=== PATIENT | male | born 1970 | race Caucasian/White ===

== ENCOUNTER → 2018-08-09 15:31 | Emergency (ER) | payer OTHER ==
--- NOTE | 2018-08-09 17:36 | ED ---
Abdominal Pain/Male - HPI Summary HPI Summary: 48-year-old male presents with right mid and upper quadrant pain. States he awoke yesterday with the pain is progressively worsened since that time. Describes the pain as a constant dull ache that will occasionally become a sharp pinching pain especially if he tries to sit up straight. Denies fever, chills, chest pain, shortness of breath, nausea, vomiting, diarrhea, melena, blood in stool, dysuria, frequency, urgency, hematuria, penile drainage, testicular pain or swelling. Last bowel movement this morning with normal color and consistency. Last ate around 1:00 this afternoon. - History of Current Complaint Chief Complaint: EDAbdPain Stated Complaint: ABD PAIN Time Seen by Provider: 08/09/18 17:30 Hx Obtained From: Patient Pain Intensity: 7 - Allergies/Home Medications Allergies/Adverse Reactions: Allergies Allergy/AdvReac Type Severity Reaction Status Date / Time No Known Allergies Allergy Verified 06/07/15 14:17 PMH/Surg Hx/FS Hx/Imm Hx Previously Healthy: Yes - Denies significant PMH Psychiatric History: Reports: Hx Depression - Surgical History Surgery Procedure, Year, and Place: Ankle surgery 20 years ago Hx Anesthesia Reactions: No Infectious Disease History: No Infectious Disease History: Denies: Traveled Outside the [place] in Last 30 Days - Family History Known Family History: Positive: Non-Contributory - Social History Occupation: Employed Full-time Lives: With Family Alcohol Use: None Substance Use Type: Reports: None Smoking Status (MU): Never Smoked Tobacco Review of Systems Negative: Fever, Chills ENT: Negative Negative: Palpitations, Chest Pain Negative: Shortness Of Breath, Cough Positive: Abdominal Pain. Negative: Vomiting, Diarrhea, Nausea Negative: dysuria, discharge, frequency, flank pain, hematuria, pain, urgency Musculoskeletal: Negative Skin: Negative Neurological: Negative All Other Systems Reviewed And Are Negative: Yes Physical Exam - Summary Physical Exam Summary: GENERAL APPEARANCE: Well developed, well nourished, cooperative, and appears to be in no acute distress. CARDIAC: Normal S1 and S2. No S3, S4 or murmurs. Rhythm is regular. There is no peripheral edema, cyanosis or pallor. Extremities are warm and well perfused. Capillary refill is less than 2 seconds. Peripheral pulses intact. LUNGS: Clear to auscultation without rales, rhonchi, wheezing or diminished breath sounds. ABDOMEN: Positive bowel sounds. Soft, nondistended, nontender. No guarding or rebound. No masses or hepatosplenomegally. No CVA tenderness. MUSKULOSKELETAL: ROM intact to all extremities. No joint erythema or tenderness. Normal muscular development. Normal gait. BACK: Examination of the spine reveals posture, no spinal deformity or tenderness, decreased range of motion or muscular spasm. NEUROLOGICAL: Awake, alert, oriented x 4. SKIN: Skin normal color, texture and turgor with no lesions or eruptions. Triage Information Reviewed: Yes Vital Signs On Initial Exam: Initial Vitals Temp Pulse Resp BP Pulse Ox 98.3 F 87 18 116/83 96 08/09/18 15:40 08/09/18 15:40 08/09/18 15:40 08/09/18 15:40 08/09/18 15:40 Vital Signs Reviewed: Yes Diagnostics - Vital Signs Vital Signs Temp Pulse Resp BP Pulse Ox 08/09/18 15:40 98.3 F 87 18 116/83 96 - Laboratory Result Diagrams: 08/09/18 17:47 08/09/18 17:47 Lab Statement: Any lab studies that have been ordered have been reviewed, and results considered in the medical decision making process. - Radiology No standard instances Radiology Interpretation Completed By: Radiologist Summary of Radiographic Findings: Patient Name: HERB MAYER Medical Record#: [id number]. Ordering Physician: Kenan Whitfield MD Acct.#: [id number]. : 01/1971 Age: 48 Sex: M Location: EMERGENCY DEPARTMENT. Exam Date: 08/09/18 154 ADM Status: REG ER. Order Information: CHEST PA LAT 2 VWS. Accession Number: [id number]. CPT: 87883. HISTORY: RUQ abd pain, R low chest discomfort. COMPARISONS: None. VIEWS: 4: Frontal dual-energy and lateral views of the chest. FINDINGS: CARDIOMEDIASTINAL SILHOUETTE: The cardiomediastinal silhouette is normal. LUIS A: The luis a are normal. PLEURA: The costophrenic angles are sharp. No pleural abnormalities are noted. LUNG PARENCHYMA: The lungs are clear. ABDOMEN: The upper abdomen is clear. There is no subphrenic gas. BONES AND SOFT TISSUES: No bone or soft tissue abnormalities are noted. OTHER: None. IMPRESSION: NO ACTIVE CARDIOPULMONARY DISEASE. - Ultrasound No standard instances Ultrasound Interpretation Completed By: Radiologist Summary of Ultrasound Findings: Patient Name: HERB MAYER Medical Record#: [id number]. Ordering Physician: Kenan Whitfield MD Acct.#: [id number]. : 01/1971 Age: 48 Sex: M Location: EMERGENCY DEPARTMENT. Exam Date: 08/09/18 1545 ADM Status: REG ER. Order Information: US GALL BLADDER LIMITED. Accession Number: [id number]. CPT: 78797. HISTORY: Right upper quadrant pain. COMPARISONS: None. TECHNIQUE: Multiple transverse and longitudinal ultrasound images were obtained of the. right upper quadrant. FINDINGS: LIVER : The liver is normal in dimensions and echogenicity. Normal hepatic and portal. venous blood flow is duplicated with color flow imaging. There is no gross intrahepatic. biliary duct dilatation. GALLBLADDER AND EXTRAHEPATIC BILIARY DUCT: The gallbladder is mostly contracted which. limits evaluation. The gallbladder is normal in appearance without intraluminal stones or. other soft tissue masses. There is no pericholecystic fluid or gallbladder wall. thickening. The common bile duct measures a maximum diameter of 3 mm. PANCREAS : The portions of the pancreas not obscured by bowel gas are normal in appearance. RIGHT KIDNEY: At the lower pole cortex of the right kidney is an anechoic and avascular. 1.3 cm structure most consistent with a benign cyst. Otherwise the right kidney is normal. in size, morphology and echogenicity. AORTA AND IVC: The visualized portions are normal in appearance and not pathologically. dilated. IMPRESSION: 1. NORMAL ULTRASOUND OF THE RIGHT UPPER QUADRANT. 2. EVALUATION OF THE GALLBLADDER IS LIMITED DUE TO PARTIAL CONTRACTION Abdominal Pain Fem Course/Dx - Course Course Of Treatment: 48-year-old male presents with right mid and upper quadrant pain. States he awoke yesterday with the pain is progressively worsened since that time. Describes the pain as a constant dull ache that will occasionally become a sharp pinching pain especially if he tries to sit up straight. Denies fever, chills, chest pain, shortness of breath, nausea, vomiting, diarrhea, melena, blood in stool, dysuria, frequency, urgency, hematuria, penile drainage, testicular pain or swelling. Last bowel movement this morning with normal color and consistency. Last ate around 1:00 this afternoon. Afebrile. Vital signs stable. Exam was unremarkable except for some mild right upper and lower quadrant tenderness without guarding or rebound. Right upper quadrant ultrasound was normal although noted to be limited to gallbladder compression. Normal chest x-ray. CBC, CMP, lipase, CRP , and urinalysis all within normal limits. Results were discussed with the patient. Based on these findings I have a low suspicion for an acute abdomen and therefore recommending some watchful waiting with close follow-up with primary care provider within 3-5 days for recheck of symptoms. Anticipatory guidance and warning symptoms were reviewed with the patient. Verbalizes understanding and is in agreement with this plan of care. - Diagnoses Differential Diagnosis/HQI/PQRI: Gall Bladder Disease, Pancreatitis, Peptic Ulcer Disease, Pneumonia Provider Diagnoses: Acute abdominal pain Discharge - Sign-Out/Discharge Documenting (check all that apply): Patient Departure Patient Received Moderate/Deep Sedation with Procedure: No - Discharge Plan Condition: Stable Disposition: HOME Patient Education Materials: Acute Abdominal Pain (ED) Referrals: Nely Treadwell MD [Primary Care Provider] - 3 Days (Follow up in 3-5 days for recheck of symptoms.) Additional Instructions: Many times we are not able to determine the exact cause of abdominal pain. The abdominal ultrasound, chest x-ray, lab work, and urine test performed in the emergency room were all normal. Based on these results and your exam I have a low suspicion for a serious cause such as gall bladder disease, kidney stone, or appendicitis. You may take an over the counter pain medication such as acetaminophen (Tylenol ) or ibuprofen (Advil, Motrin) according to directions as needed for pain. Follow up with your primary care provider within 3-5 days for recheck of symptoms. Return immediately to the emergency room if you have worsening of your abdominal pain, develop persistent or projectile vomiting, there is blood in your vomit or stool, you become weak or dizzy, or have any worsening of symptoms. - Billing Disposition and Condition Condition: STABLE Disposition: Home
[2018-08-09 18:02] LABS: ABS Basophils 0 10^3/ul (0-0.2); ABS Eosinophils 0.2 10^3/ul (0-0.6); ABS Lymphocytes 1.9 10^3/ul (1.0-4.8); ABS Monocytes 0.7 10^3/ul (0-0.8); ABS Neutrophils 3.7 10^3/ul (1.5-7.7); ABS Nucleated RBC 0 10^3/ul; Eosinophil % 2.4 %; Hematocrit 45 % (42-52); Hemoglobin 15.2 g/dl (14.0-18.0); Lymphocyte % 28.8 %; Mean Corpuscular HGB Conc 34 g/dl (31-36); Mean Corpuscular Hemoglobin 30 pg (27-31); Mean Corpuscular Volume 88 fL (80-94); Mean Platelet Volume 7.8 fL (7.4-10.4); Nucleated Red Blood Cells % 0; Platelet Count 258 10^3/ul (150-450); Red Blood Count 5.11 10^6/ul (4.00-5.40); Red Cell Distribution Width 13 % (10.5-15); White Blood Count 6.6 10^3/ul (3.5-10.8)
[2018-08-09 18:07] LABS: INR 0.96 (0.77-1.02)
[2018-08-09 18:15] LABS: Albumin 4.3 g/dL (3.2-5.2); Albumin/Globulin Ratio 1.7 (1-3); BUN/Creatinine Ratio 21.7 (8-20); C Reactive Protein 3.98 mg/L (<8.01); Calcium 8.8 mg/dL (8.6-10.3); EGFR African American 107.2 (>60); EGFR Non-African American 88.6 (>60); Globulin 2.6 g/dL (2-4); Total Bilirubin 0.3 mg/dL (0.2-1.0); Total Protein 6.9 g/dL (6.4-8.9)
[2018-08-09 18:43] LABS: Urine Appearance Cloudy; Urine Bilirubin Negative (Negative); Urine Blood Negative (Negative); Urine Color Yellow; Urine Glucose Negative (Negative); Urine Ketones Negative (Negative); Urine Nitrite Negative (Negative); Urine Protein Negative (Negative); Urine Specific Gravity 1.027 (1.010-1.030); Urine Urobilinogen Negative (Negative)
[2018-08-09 19:01] LABS: Potassium 4.1 mmol/L (3.5-5.0)
[2018-08-09 19:43] VITALS: BP 0/0
== END | disposition home or self-care (01) ==
LOC: ED 15:31
DX: R10.11 Right upper quadrant pain (principal)
CPT/HCPCS: 36415; 71046; 76705; 80053; 81003; 83605; 83690; 85025; 85610; 86140; 99282

== ENCOUNTER 2019-05-19 07:38 | Emergency (ER) | payer OTHER ==
[2019-05-19 08:15] LABS: ABS Eosinophils 0.1 10^3/ul (0-0.6); ABS Lymphocytes 1.3 10^3/ul (1.0-4.8); ABS Monocytes 0.5 10^3/ul (0-0.8); ABS Neutrophils 4.1 10^3/ul (1.5-7.7); Eosinophil % 2.1 %; Hematocrit 43 % (42-52); Lymphocyte % 21.4 %; Mean Corpuscular HGB Conc 35 g/dL (31-36); Mean Corpuscular Hemoglobin 30 pg (27-31); Mean Corpuscular Volume 86 fL (80-94); Mean Platelet Volume 7.6 fL (7.4-10.4); Nucleated Red Blood Cells % 0.1; Platelet Count 214 10^3/uL (150-450); Red Blood Count 4.99 10^6 /uL (4.18-5.48); Red Cell Distribution Width 13 % (10-15)
[2019-05-19 08:24] LABS: Calcium 8.6 mg/dL (8.6-10.3); Potassium 3.7 mmol/L (3.5-5.0); Total Bilirubin 0.5 mg/dL (0.2-1.0)
[2019-05-19 08:30] LABS: Albumin/Globulin Ratio 1.5 (1-3); BUN/Creatinine Ratio 18.2 (8-20); EGFR African American 131.6 (>60); EGFR Non-African American 108.8 (>60); Globulin 2.6 g/dL (2-4); Total Protein 6.6 g/dL (6.4-8.9)
[2019-05-19 08:58] LABS: Urine Appearance Clear; Urine Bilirubin Negative (Negative); Urine Blood Negative (Negative); Urine Color Straw; Urine Glucose Negative (Negative); Urine Ketones Negative (Negative); Urine Nitrite Negative (Negative); Urine Protein Negative (Negative); Urine Specific Gravity 1.004 (1.010-1.030); Urine Urobilinogen Negative (Negative)
--- OUTSIDE RECORDS SUMMARY | 2019-05-19 09:08 | XMS REPORT | Summary of Care ---
:1970 Author Organization [facility] Address [address] [place] [address] Care Team Providers Name Role Phone Nely Treadwell Primary Care Provider Reason for Visit Sleep Study (Routine) Status Reason Specialty Diagnoses / Referred By Referred To Procedures Contact Contact Closed SLEEP LAB / Sleep Diagnoses Obstructive sleep apnea (adult) (pediatric) Non-restorative sleep Snoring Nely Treadwell MD Sleep Lab Disorder [address] [place], [place] [id number] Phone: Encounter Details Date Type Department Care Team Description 04/22/2019 Hospital Encounter [facility] Sleep Lab Outpatient [address] [place] [address] Allergies No Known Allergiesdocumented as of this encounter (statuses as of 04/24/2019) Medications Medication Sig Dispensed Refills Start Date End Date Status Multiple Take 1 Tab by 30 Tab 0 03/09/2018 Active Vitamins-Minerals (MENS mouth WITH LUNCH 50+ MULTI VITAMIN/MIN) DAILY. Oral TabIndications: Vitamin D deficiency, Vitamin B 12 deficiency documented as of this encounter (statuses as of 04/24/2019) Active Problems Problem Noted Date Nasal congestion 03/23/2019 Nose septum deviation 03/23/2019 KALYAN (obstructive sleep apnea) 03/23/2019 Non-restorative sleep 03/23/2019 Snoring 03/23/2019 Hyperglycemia 03/23/2019 Depression screen 03/23/2019 Vitamin B12 deficiency 03/23/2019 Cyst of right kidney seen on US 07/201803/21/2019 Vitamin D deficiency 03/07/2017 Hyperlipidemia with target LDL less than 100 03/07/2017 Simple hepatic cyst 03/07/2017 Ex-moderate cigarette smoker (10-19 per day) 08/25/2016 Physical exam, annual 08/25/2016 documented as of this encounter (statuses as of 04/24/2019) Resolved Problems Problem Noted Date Resolved Date History of vitamin B deficiency 04/20/2018 03/23/2019 Hypovitaminosis D 09/20/2012 02/20/2015 Tobacco use disorder 11/25/2010 12/06/2011 Nicotine dependence 11/25/2010 09/20/2012 BMI 27.0-27.9,adult 09/20/2012 Overview: BMI 27.04 Vertigo 03/23/2019 documented as of this encounter (statuses as of 04/24/2019) Immunizations Name Administration Dates Next Due Influenza (IM) Preservative Free 06/20/2015 documented as of this encounter Social History Tobacco Use Types Packs/Day Years Used Date Former Smoker Cigarettes 1 16 Quit: 10/25/2011 Smokeless Tobacco: Never Used Comments: Contemplation Stage Alcohol Use Drinks/Week oz/Week Comments Yes 10 Standard drinks or equivalent 10.0 Sex Assigned at Date Recorded Not on file Job Start Date Occupation Industry Not on file Not on file Not on file Travel History Travel Start Travel End No recent travel history available. documented as of this encounter Last Filed Vital Signs Vital Sign Reading Time Taken Comments Blood Pressure - - Pulse - - Temperature - - Respiratory Rate - - Oxygen Saturation - - Inhaled Oxygen Concentration - - Weight 83.9 kg (185 lb) 04/22/2019 11:50 PM EDT Height 175.3 cm (5' 9") 04/22/2019 11:50 PM EDT Body Mass Index 27.32 04/22/2019 11:50 PM EDT documented in this encounter Progress Notes Sp Melo, WELDING TECHNICIAN - 04/22/2019 11:37 PM EDT [facility] [address] [place] [address] Patient: Pepito Maxdonnell Date of : 1970 Study Type: [facility] Date of test: 04/22/2019 Unhairing Inspector: Sp Melo CRTT Room #: 1 [facility] #: [id number] Pre-Testing Questionnaire 1) What time did you fall asleep last night? 2200 2) What time did you wake up this morning? 0600 3) Was this a typical night's sleep for you? yes If no, please explain: 4) Approximately how many hours did you sleep... Last night 7-8 Two nights ago 8 Three nights ago 8 5) How many naps did you have today? None How long? 6) How tired/sleepy are you now? (Wide awake = 1, Can't keep my eyes open = 10 ) 7 7) Has anything out of the ordinary happened to you recently? Please explain NO 8) Do you take medications to help you sleep? no Please list: 9) Have you taken any prescription or over the counter medications today? no Please list: NA 10) Do any occurences during sleep concern you? NO 11) Do you have any medical problems or sleep habits that the satellite technician should be made aware? NO 12) Did you consume any alcohol today? no 13) Did you consume any caffeine today? yes 14) Current vitals: Ht 5' 9" (1.753 m) | Wt 185 lb (83.9 kg) | BMI 27.32 kg/ m Unhairing Inspector Summary Current medications: Current Outpatient Medications Medication Sig Multiple Vitamins-Minerals (MENS 50+ MULTI VITAMIN/MIN) Oral Tab Take 1 Tab by mouth WITH LUNCH DAILY. No current facility-administered medications for this encounter. Unhairing Inspector Pretest Summary The patient has a history of mild daytime sleepiness . The patient is aware of moderate snoring. His Franklin Score is 10. The patient becomes drowsy when in class, when sitting quietly, watching TV and at the movies. He does not nap during the day. He is unaware of any apnea/abnormal breathing. The patient typically awakens unrefreshed. He typically consumes 3 caffeinated beverages a day. The patient has not been using any therapy at home. Procedure explained to pt and also about the use of cpap. Time Epoch Stage Position SaO2 Modality 2232 107 Wake Supine 96 N/A Arousals Respiratory Events Snoring HR Comments no None No snoring 68 Additional comments: Pt to bed and lights out. RR 18 bpm. Time Epoch Stage Position SaO2 Modality 2305 174 2 Supine 94 N/A Arousals Respiratory Events Snoring HR Comments no None No snoring 63 Leg movements Additional comments: Time Epoch Stage Position SaO2 Modality 2335 233 2 Right 95 N/A Arousals Respiratory Events Snoring HR Comments no RERAs No snoring 65 Additional comments: Time Epoch Stage Position SaO2 Modality 0005 293 REM Right 95 N/A Arousals Respiratory Events Snoring HR Comments no None No snoring 65 Additional comments: Time Epoch Stage Position SaO2 Modality 0035 354 2 Supine 96 N/A Arousals Respiratory Events Snoring HR Comments no None No snoring 64 Additional comments: Time Epoch Stage Position SaO2 Modality 0107 418 3 Right 96 N/A Arousals Respiratory Events Snoring HR Comments no None No snoring 65 Additional comments: 0126 Epoch 455. Tech in to fix leg electrodes. Time Epoch Stage Position SaO2 Modality 0142 487 REM Supine 94 N/A Arousals Respiratory Events Snoring HR Comments no None No snoring 60 Additional comments: 0158 Tech in to fix ptaf and chest belt. Time Epoch Stage Position SaO2 Modality 0215 553 2 Left 95 N/A Arousals Respiratory Events Snoring HR Comments no None No snoring 55 Additional comments: Time Epoch Stage Position SaO2 Modality 0250 623 2 Supine 95 N/A Arousals Respiratory Events Snoring HR Comments no None No snoring 55 Additional comments: Time Epoch Stage Position SaO2 Modality 0321 686 2 Right 96 N/A Arousals Respiratory Events Snoring HR Comments no None No snoring 54 Additional comments: Time Epoch Stage Position SaO2 Modality 0357 757 2 Right 96 N/A Arousals Respiratory Events Snoring HR Comments no None No snoring 52 Additional comments: Time Epoch Stage Position SaO2 Modality 0430 824 REM Supine and Left 96 N/A Arousals Respiratory Events Snoring HR Comments no None No snoring 48 Additional comments: Time Epoch Stage Position SaO2 Modality 0514 911 Wake Supine 96 N/A Arousals Respiratory Events Snoring HR Comments no None No snoring 77 Additional comments: Pt up at this time. Supplemental O2 Setting: NA Tolerance: Well Lights on: 0514 Lights off: 2 Bathroom visits: 1 Bed elevation: Flat Number of pillows: 1 Post-Testing Questionnaire 1) How long did it take you to fall asleep last night? hrs 20 min 2) How many times did you wake up last night? 5 3) How tired/sleepy are you now? (can't keep my eyes open = 1, wide awake = 5) 4 4) Was the bed comfortable? (not at all = 1, very = 5) 4 5) Was the temperature comfortable? (not at all = 1, very = 5) 4 6) Was the noise level comfortable? (noisy = 1, quiet = 5) 5 7) Was our staff attentive to your needs? (not at all = 1, very = 5) 5 8) How long do you think you slept last night? 6 hrs min 9) Did you have difficulty falling asleep last night? no If so, why?: 10) Did you dream last night? no 11) Did you have any trouble breathing last night? no 12) Do you remember moving in your sleep last night? yes 13) Do any of the following describe how you feel this morning? Feel rested 14) How did the quality of sleep last night compare to your usual sleep at home ? Worse 15) If you could use one word to describe your experience, what would it be? NA Please share with us how we could improve your visit. NA Comments: NA Author: Sp Melo CRTT Date and time completed: 04/23/2019 05:51 documented in this encounter Plan of Treatment Date Type Specialty Care Team Description 06/12/2019 Hospital Encounter [facility] Augusto Hdz Short Procedure MD Ricki [address] [place] [address] 06/12/2019 Surgery [facility] Augusto Hdz SEPTORHINOPLASTYJr. MD REDUCTION OF [address] BILATERAL INFERIOR [place] [address] 06/20/2019 Office Visit Otorhinolaryngology Augusto Hdz Jr., MD [address] [place] [address] 03/24/2020 Office Visit Internal Medicine Nely Treadwell MD [address] [facility] [address] [phone] Name Type Priority Associated Diagnoses Order Schedule REFER TO SLEEP STUDY Referral Routine Snoring Ordered: 03/22/2019 LAB Non-restorative sleep KALYAN (obstructive sleep apnea) Health Maintenance Due Date Last Done Comments INFLUENZA VACCINE (#1) 2019 06/20/2015 DEPRESSION SCREENING 03/22/2020 03/22/2019, 04/20/2018 DIABETES SCREENING 03/29/2020 03/29/2019, 03/29/2019, 04/20/2018, Additional history exists LIPID DISORDER SCREENING 03/29/2024 03/29/2019, 03/09/2018, 08/25/2016, Additional history exists HPV IMMUNIZATION SERIES Aged Out No longer eligible based on patient's age to complete this topic MENINGOCOCCAL VACCINE IMM Aged Out No longer eligible based on patient's age to complete this topic PNEUMOCOCCAL 0-64 YRS Aged Out No longer eligible based on patient's age to complete this topic documented as of this encounter Goals Goal Patient Goal Associated Recent Patient-Stated? Author Type Problems Progress Depression Depression 4 (04/20/2018 No Eben, screen (PHQ-9) 2:58 PM EDT) Nely total score < 5 Note: This is an individualized treatment (depression) goal for Pepito Norwood: Displayed above is your goal for a depression screening (PHQ-9) score that would indicate good control of your depression. Keep a regular sleep schedule Lifestyle No Nely Treadwell MD Note: This is an individualized lifestyle goal for Pepito Norwood: Please maintain a regular sleep schedule. This may help with some symptoms of depression. Take all prescribed medications as directed Self-management No Nely Treadwell MD Note: This is an individualized self-management goal for Pepito Norwood: Please take all prescribed medications as directed. 1. Do not skip doses. If you cannot afford your medications, talk with your doctor. 2. Use a pill reminder system such as a pill box if needed. Your pharmacist can help you with this. 3. Contact your Pharmacy 5 days before your medication runs out. If you cannot take your medications for any reasons, talk with your doctor. 4. Please bring all of your medication bottles and inhalers (or a list of all your medications/inhalers) with you to every visit. Potential barriers to meeting all of your care plan goals will continue to be addressed on an ongoing basis. documented as of this encounter Results Not on filedocumented in this encounter Insurance Payer Benefit Plan / Subscriber ID Effective Dates Phone Address Type Group [employer] COMMERCIAL AETNA xxxxxxxxxx 2018-Present A[employer]na Guarantor Name Account Type Relation to Date of Phone Billing Address Patient AndristPepito Isabelle Personal/Famil 1970 [address] (Home) [place] [phone] [place], [place] (Work) [id number] documented as of this encounter
--- OUTSIDE RECORDS SUMMARY | 2019-05-19 09:08 | XMS REPORT | Summary of Care ---
:1970 Author Organization [facility] Address [address] [address] Care Team Providers Name Role Phone Nely Treadwell Primary Care Provider Reason for Visit Reason Comments Nose Problem Patient presents with nasal obstruction and snoring. He has tried nasal silicone stents to help with breathing. Scheduled for sleep study Monday04/22/19. Encounter Details Date Type Department Care Team Description 04/18/2019 Office Visit Augusto Jimenez Jr., Obstruction of nose ( Primary Dx); Otorhinolaryngology MD Deviated nasal septum; [address] Nasal deformity, acquired [address] [place] [address] [address] [phone] Allergies No Known Allergiesdocumented as of this encounter (statuses as of 04/18/2019) Medications Medication Sig Dispensed Refills Start Date End Date Status Multiple Take 1 Tab by 30 Tab 0 03/09/2018 Active Vitamins-Minerals (MENS mouth WITH LUNCH 50+ MULTI VITAMIN/MIN) DAILY. Oral TabIndications: Vitamin D deficiency, Vitamin B 12 deficiency documented as of this encounter (statuses as of 04/18/2019) Active Problems Problem Noted Date Nasal congestion 03/23/2019 Nose septum deviation 03/23/2019 KALYAN (obstructive sleep apnea) 03/23/2019 Non-restorative sleep 03/23/2019 Snoring 03/23/2019 Hyperglycemia 03/23/2019 Depression screen 03/23/2019 Vitamin B12 deficiency 03/23/2019 Cyst of right kidney seen on 07/201803/21/2019 Vitamin D deficiency 03/07/2017 Hyperlipidemia with target LDL less than 100 03/07/2017 Simple hepatic cyst 03/07/2017 Ex-moderate cigarette smoker (10-19 per day) 08/25/2016 Physical exam, annual 08/25/2016 documented as of this encounter (statuses as of 04/18/2019) Resolved Problems Problem Noted Date Resolved Date History of vitamin B deficiency 04/20/2018 03/23/2019 Hypovitaminosis D 09/20/2012 02/20/2015 Tobacco use disorder 11/25/2010 12/06/2011 Nicotine dependence 11/25/2010 09/20/2012 BMI 27.0-27.9,adult 09/20/2012 Overview: BMI 27.04 Vertigo 03/23/2019 documented as of this encounter (statuses as of 04/18/2019) Immunizations Name Administration Dates Next Due Influenza [...] - Inhaled Oxygen Concentration - - Weight 87.5 kg (193 lb) 04/18/2019 1:04 PM EDT Height 175.3 cm (5' 9") 04/18/2019 1:04 PM EDT Body Mass Index 28.5 04/18/2019 1:04 PM EDT documented in this encounter Patient Instructions Patient InstructionsMelissa Bates LPN - 04/18/2019 1:00 PM EDTPatient Education Septoplasty Why is this procedure done? Septoplasty is done to correct problems with the septum inside your nose. Your septum is the wall that divides your nostrils. It is made of bone and hard tissue called cartilage. The surgery is done to: Fix a septum that is out of place and is blocking your nose Straighten your septum Repair a crooked, bent, or deformed septum that blocks your ability to breathe Repair a hole in your septum Control sinus infections Control irregular nose bleeding What will the results be? After you recover, you will be able to breathe through your nose more easily. Your septum will be straight and in the right place. What happens before the procedure? Your doctor will take your history and do an exam. Talk to the doctor about : ? All the drugs you are taking. Be sure to include all prescription and over-the -counter (OTC) drugs, and herbs you are taking. Tell the doctor about any drug allergy. Bring a list of drugs you take with you. ? Any bleeding problems. Be sure to tell your doctor if you are taking any drugs that may cause bleeding. Some of these are Coumadin, ibuprofen, Aleve (naproxen), or aspirin. Certain vitamins and herbs, such as garlic and fish oil, may also add to the risk for bleeding. You may need to stop these drugs as well. Talk to your doctor about them. ? When you need to stop eating or drinking before your procedure. You will not be allowed to drive right away after the procedure. Ask a family member or a friend to drive you home. What happens during the procedure? Once you are in the operating room, the staff will put an IV in your arm to give you fluids anddrugs. You will be given a drug to make you sleepy. It will also help you stay pain free during the surgery. Your doctor will make a cut inside of one side of your nose. The doctor will fix whatever is blocking your nose and causing you to have problems. Your doctor will close the cut with stitches and cover it with clean bandages. A special splintmay also be put into the nose to keep the septum in place while it heals. Your nose may also be packed with cotton to help control bleeding. This procedure may take 1 to 2 hours. What happens after the procedure? You will feel some pain. Your doctor will give you drugs for pain and swelling. The packing will be removed after 1 to 2 days. You can go home after surgery. What drugs may be needed? The doctor may order drugs to: Help with pain and swelling Fight an infection What problems could happen? Infection Bleeding Numbness in the nose Where can I learn more? [place] [employer] https://www.enthealth.org/conditions/deviated-septum/ [place] [employer] http://care.sammarinese-rhinologic.org/septoplasty_turbinates Last Reviewed Date 2018-04-04 Consumer Information Use and Disclaimer This information is not specific medical advice and does not replace information you receive from your health care provider. This is only a brief summary of general information. It does NOT include allinformation about conditions, illnesses, injuries, tests, procedures, treatments, therapies, discharge instructions or life-style choices that may apply to you. You must talk with your health care provider for complete information about your health and treatment options. This information should not beused to decide whether or not to accept your health care providers advice, instructions or recommendations. Only your health care provider has the knowledge and training to provide advice that isright for you. Copyright Copyright 2018 [employer] and its affiliates and/or licensors. All rights reserved. documented in this encounter Progress Notes Augusto Hdz Jr., MD - 04/18/2019 1:00 PM EDT [facility] Otolaryngology OFFICE NOTE Name: Pepito Norwood Date of : 1970 B Number: [id number] Date of Examination: 04/18/2019 Chief Complaint: Chief Complaint Patient presents with Nose Problem Patient presents with nasal obstruction and snoring. He has tried nasal silicone stents to help with breathing. Scheduled for sleep study Monday. History of Present Illness: Pepito Norwood is a 48-y.o. male, referred by Adri Peck PA-C who presents today for evaluation of nasal obstruction. He has had a long history of a vague fixed nasalobstruction without congestion. He started having problems with snoring and possible sleep disturbance (he has a sleep study scheduled next week). It was suggested that he try silicone intranasal stents and he noticed that it helped both his breathing and his snoring. Accordingly he was referred for evaluation to see if there is anything wrong with his nose. 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 He feels that the tightness in his breathing is similar on both sides. Again he, he has no other congestive symptoms and is not a candidate for medical management. He denies other related symptoms or complaints. Past History: Past medical and surgical histories were reviewed. Patient Active Problem List Diagnosis Ex-moderate cigarette smoker (10-19 per day) Physical exam, annual Vitamin D deficiency Hyperlipidemia with target LDL less than 100 Simple hepatic cyst Cyst of right kidney seen on US 07/2018 Nasal congestion Nose septum deviation KALYAN (obstructive sleep apnea) Non-restorative sleep Snoring Hyperglycemia Depression screen Vitamin B12 deficiency Allergies: No Known Allergies Current Medications: Current medications include Current Outpatient Medications Medication Sig Multiple Vitamins-Minerals (MENS 50+ MULTI VITAMIN/MIN) Oral Tab Take 1 Tab by mouth WITH LUNCH DAILY. No current facility-administered medications for this visit. 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 Nose: + chronic nasal obstruction, He denies nasal bleeding, other nasal drainage or facial pain. Oral: He denies oral pain, oral bleeding, dental pain, oral ulcerations or sores. Pharynx: He denies frequent sore throats, nausea or vomiting, or dysphagia. Larynx: He denies hoarseness, stridor or hemoptysis Neck: He denies neck masses or neck pain Skin: He denies prior facial or skin cancers or lesions. General Review of Systems: Respiratory: He denies dyspnea, stridor or wheezing. Cardiac: He denies chest pain or palpitations. Neurologic: He denies abnormal change in level of consciousness or motor impairment. All other systems were negative PHYSICAL EXAMINATION: Vital Signs: Ht 5' 9" (1.753 m) | Wt 193 lb (87.5 kg) | BMI 28.50 kg/m General: Pepito Norwood is a well-developed, well-nourished 48-y.o. male who appears his stated age. The patient is alert and oriented x 3, in no acute distress without pallor, cyanosis or jaundice. Head: Normocephalic without masses. Facial nerve function is intact and symmetrical bilaterally. Ears: Both pinnae are normal and well formed without skin lesions. Nose: The external nose shows bony irregularities along the left rhinion consistent with previous injuries. The middle vault region is very narrow and the alar margins appear collapse. On basic inspiration there is collapse and on forced inspiration he has total collapse of both nostrils. Columellar base is wide. The septum is generally midline anterior but has high obstructive deviations posteriorly. Nasal turbinates are enlarged. No nasal polyps are noted. There is no nasal purulence or discharge. Oral: : There are no lesions of the lips. Larynx: He speaks with a clear voice. Neck: Neck exam does not show cervical lymphadenopathy or other masses. . No skin lesions are noted in the neck area. Neurologic: He is fully oriented and alert. ASSESSMENT: ICD-9-CM ICD-10-CM 1. Obstruction of nose 478.19 J34.89 2. Deviated nasal septum 470 J34.2 3. 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 Its likely that he had some traumatic injury playing sports when he was much younger. 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 Additionally he has a very wide columellar base. As can be seen on base view, he has total collapse on inspiration. I do not know if there is a significant correlation with his snoring or sleep disturbance and I made this clear with him that surgery may not impact these issues. However when the ala are gently lateralized with ear curette simultaneously he does have a subjective improvement of breathing. Accordingly we would proceed with septoplasty and used some of the cartilage to allow for alar and sidewall grafting to anabela and stiff in these regions present collapse. This would be a septorhinoplasty that is done through a endonasal approach. Of note is that he has no congestive symptoms so he isnot a candidate for medical management. By way of this note and photographs taken today we will request prior approval for this completely functional procedure that has some posttraumatic components. The CPT codes for the procedure #60199 and #96615-37 for outfracture of the inferior turbinates. Again it is a completely functional procedure I reviewed the procedure in detail including the postoperative morbidity issues. There is an approximately 80% chance of adequate improvement of his breathing (there is a 20% chance of inadequate improvement, no improvement, or worsen breathing in appearance; there is approximately 50% chance that itwill help with his snoring and sleep issues). Other risks include bleeding, infection, asymmetries,irregularities, septal perforation and its sequelae, need for further surgery, etc. All questions were answered and consents were signed for surgery at [facility] in May. Augusto Hdz Jr., MD [facility] Otolaryngology Patient Instructions Patient Education Septoplasty Why is this procedure done? Septoplasty is done to correct problems with the septum inside your nose. Your septum is the wall that divides your nostrils. It is made of bone and hard tissue called cartilage. The surgery is done to: Fix a septum that is out of place and is blocking your nose Straighten your septum Repair a crooked, bent, or deformed septum that blocks your ability to breathe Repair a hole in your septum Control sinus infections Control irregular nose bleeding What will the results be? After you recover, you will be able to breathe through your nose more easily. Your septum will be straight and in the right place. What happens before the procedure? Your doctor will take your history and do an exam. Talk to the doctor about : ? All the drugs you are taking. Be sure to include all prescription and over-the -counter (OTC) drugs, and herbs you are taking. Tell the doctor about any drug allergy. Bring a list of drugs you take with you. ? Any bleeding problems. Be sure to tell your doctor if you are taking any drugs that may cause bleeding. Some of these are Coumadin, ibuprofen, Aleve (naproxen), or aspirin. Certain vitamins and herbs, such as garlic and fish oil, may also add to the risk for bleeding. You may need to stop these drugs as well. Talk to your doctor about them. ? When you need to stop eating or drinking before your procedure. You will not be allowed to drive right away after the procedure. Ask a family member or a friend to drive you home. What happens during the procedure? Once you are in the operating room, the staff will put an IV in your arm to give you fluids anddrugs. You will be given a drug to make you sleepy. It will also help you stay pain free during the surgery. Your doctor will make a cut inside of one side of your nose. The doctor will fix whatever is blocking your nose and causing you to have problems. Your doctor will close the cut with stitches and cover it with clean bandages. A special splintmay also be put into the nose to keep the septum in place while it heals. Your nose may also be packed with cotton to help control bleeding. This procedure may take 1 to 2 hours. What happens after the procedure? You will feel some pain. Your doctor will give you drugs for pain and swelling. The packing will be removed after 1 to 2 days. You can go home after surgery. What drugs may be needed? The doctor may order drugs to: Help with pain and swelling Fight an infection What problems could happen? Infection Bleeding Numbness in the nose Where can I learn more? [place] [employer]ol[employer]-Head [employer] https://www.enthealth.org/conditions/deviated-septum/ [place] [employer] http://care.sammarinese-[email or web address]/septoplasty_turbinates Last Reviewed Date 2018-04-04 Consumer Information Use and Disclaimer This information is not specific medical advice and does not replace information you receive from your health care provider. This is only a brief summary of general information. It does NOT include allinformation about conditions, illnesses, injuries, tests, procedures, treatments, therapies, discharge instructions or life-style choices that may apply to you. You must talk with your health care provider for complete information about your health and treatment options. This information should not beused to decide whether or not to accept your health care providers advice, instructions or recommendations. Only your health care provider has the knowledge and training to provide advice that isright for you. Copyright Copyright 2018 [employer], [employer]. and its affiliates and/or licensors. All rights reserved. documented in this encounter Plan of Treatment Date Type Specialty Care Team Description 04/22/2019 Appointment Sleep Disorder 06/20/2019 Office Visit Otorhinolaryngology Augusto Hdz Jr., MD [address] [id number] 03/24/2020 Office Visit Internal Medicine Nely Treadwell MD [address] [place] [address] [phone] Health Maintenance Due Date Last Done Comments [...] No Eben, screen (PHQ-9) 2:58 PM EDT) Nely, total score < 5 Note: This is [...] Results Not on filedocumented in this encounter Visit Diagnoses Diagnosis Obstruction of nose - Primary Other diseases of nasal cavity and sinuses Deviated nasal septum Nasal deformity, acquired Acquired deformity of nose documented in this encounter Insurance Payer Benefit Plan / Subscriber ID Effective Dates Phone Address Type Group [employer]ERCIAL AETNA xxxxxxxxxx 2018-Present [employer] Guarantor Name Account Type Relation to Date of Phone Billing Address Patient AndristPepito Personal/Famil 1970 [address] (Home) [place] [phone] [place], [place] (Work) [id number] documented as of this encounter
--- OUTSIDE RECORDS SUMMARY | 2019-05-19 09:08 | XMS REPORT | Summary of Care ---
:1970 Author Organization [facility] Address [address] [place] [address] Care Team Providers Name Role Phone Nely Treadwell Primary Care Provider Reason for Visit Reason Comments Snoring Patient presents today with c/o increased snoring. He states that he asked his PCP for referral for a sleep study but hasn't heard back regarding insurance coverage for this. Denies runny nose, fever, cough, sore throat, ear pain Refer to Department Only (Routine) Status Reason Specialty Diagnoses / Referred By Referred To Procedures Contact Contact Closed OTORHINOLARYNGOLOGY / Diagnoses Nose septum deviation Nasal congestion Nely Treadwell Nelson, Otorhinolaryngology MD Adri PA-C [address] [place], [place] [phone] Phone: Fax: Encounter Details Date Type Department Care Team Description 04/03/2019 Office Visit Adri Mcduffie, Collapse of nasal valve ( Primary Dx); Otorhinolaryngology [facility] Obstruction of nose; [address] Snoring; [place] [address] [place] [id number] Laryngopharyngeal reflux (LPR) [phone] Allergies No Known Allergiesdocumented as of this encounter (statuses as of 04/04/2019) Medications Medication Sig Dispensed Refills Start Date End Date Status Multiple Take 1 Tab by 30 Tab 0 03/09/2018 Active Vitamins-Minerals (MENS mouth WITH LUNCH 50+ MULTI VITAMIN/MIN) DAILY. Oral TabIndications: Vitamin D deficiency, Vitamin B 12 deficiency documented as of this encounter (statuses as of 04/04/2019) Active Problems Problem Noted Date Nasal congestion [...] as of this encounter (statuses as of 04/04/2019) Resolved Problems Problem Noted Date Resolved Date History of vitamin B deficiency 04/20/2018 03/23/2019 Hypovitaminosis D 09/20/2012 02/20/2015 Tobacco use disorder 11/25/2010 12/06/2011 Nicotine dependence 11/25/2010 09/20/2012 BMI 27.0-27.9,adult 09/20/2012 Overview: BMI 27.04 Vertigo 03/23/2019 documented as of this encounter (statuses as of 04/04/2019) Immunizations Name Administration Dates Next Due Influenza [...] Sign Reading Time Taken Comments Blood Pressure 124/64 04/03/2019 1:50 PM EDT Pulse - - Temperature - - Respiratory Rate - - Oxygen Saturation - - Inhaled Oxygen Concentration - - Weight 87.6 kg (193 lb 1.6 oz) 04/03/2019 1:50 PM EDT Height 175.3 cm (5' 9") 04/03/2019 1:50 PM EDT Body Mass Index 28.52 04/03/2019 1:50 PM EDT documented in this encounter Patient Instructions Patient InstructionsAdri Peck PA-C - 04/03/2019 2:00 PM EDTNASAL OBSTRUCTION It appears you have some collapse of your nasal valves/side cordero on your nose, mostly on the right side which surgical intervention could improve. Follow up with Dr. Hdz to have your nose reexamined and to discuss specific surgical recommendations for your nasal obstruction. LARYNGOPHARYNGEAL REFLUX ( LPR ) = Stomach acid can cause irritation of the tissues in the back of the nose and throat which can contribute to the symptoms you are having. Start a liquid antacid at bedtime every night with nothing to eat or drink after. Liquid antacids can be found over the counter such as Gavascon, Pepcid or Mylanta. Do this every night for 6 weeks. This will help to heal some of the irritation in the back of the throat. Lifestyle modifications are necessary to help prevent this type of irritation from occurring again. Avoid reflux triggers: coffee, tea, soda, chocolate, mints, nuts, dairy/cheese, spicy/high acid foods, alcohol, tobacco, eating within 3 hours of bedtime. Stress is also a trigger for acid reflux. Raise the head of the bed 4 to 6 inches. Review laryngeal pharyngeal reflux education sheets. Symptoms of LPR may take minimally 6-8 weeks to start improving once these recommendations are started. If no improvement in symptoms, please return in 6 weeks so we can take a look at your vocal cords. Call the office with any new or worsening symptoms, questions or concerns. documented in this encounter Progress Notes Adri Peck PA-C - 04/03/2019 2:00 PM EDT [facility] Otolaryngology OFFICE NOTE Name: Pepito Norwood Date of : 1970 B Number: [id number] Date of Examination: 04/03/2019 Chief Complaint: Chief Complaint Patient presents with Snoring Patient presents today with c/o increased snoring. He states that he asked his PCP for referral for a sleep study but hasn't heard back regarding insurance coverage for this. Denies runny nose, fever, cough, sore throat, ear pain History of Present Illness: Pepito Norwood is a 48-y.o. male Pt presents for snoring as his main complaint, he tried wearing nasal tube inserts and this allowed better air flow through the nose and helped him sleep but these fall out during the night so he wonders if there is anything else he can do. 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 He denies nasal obstruction during the day, he does not really notice congestion, nasal drainage or other allergy sxs. He does note throat clearing, pnd, and scratchy voice at times. Denies dysphagia, heart burn, cough. No other sxs/concerns. Past History: Past medical and surgical histories were reviewed. Patient Active Problem List Diagnosis Ex-moderate cigarette smoker (10-19 per day) Physical exam, annual Vitamin D deficiency Hyperlipidemia with target LDL less than 100 Simple hepatic cyst Cyst of right kidney seen on 07/2018 Nasal congestion Nose septum deviation KALYAN [...] 10 Standard drinks or equivalent per week Otolaryngology System Review: Ears: He denies hearing loss, vertigo, tinnitus, ear pain, ear drainage or facial paralysis. Nose: +snoring He denies chronic nasal obstruction, nasal bleeding, other nasal drainage or facial [...] systems were negative PHYSICAL EXAMINATION: Vital Signs: BP 124/64 | Ht 5' 9" (1.753 m) | Wt 193 lb 1.6 oz (87.6 kg) | BMI 28.52 kg/m General: Pepito Norwood is a well-developed, well-nourished 48-y.o. male who appears his stated age. The patient is alert and oriented x 3, in no acute distress without pallor, cyanosis or jaundice. Head: Normocephalic without masses. He does not have swelling in the parotid regions or in the submandibular salivary glands. Facial nerve function is intact and symmetrical bilaterally. Ears: Both pinnae are normal and well formed without skin lesions. External auditory canals are clear. Tympanic membranes are intact and clear without bulging or retraction. No middle ear effusionsare present. No cholesteatoma is evident in either ear. Nose: The external nose is clear without skin lesions. Right nostril is more narrow due to lateral wall being deviated more medial. When breathing in through the nose the nasal valves collapse R > L, right side almost completely closes, when the skin on each side of the bridge of nose is pulled laterally the patient breathes better. The nasal septum is intact and not significantly deviated. Nasal turbinates are mildly enlarged. There is no nasal purulence or discharge. Oral: The oral mucosa is clear: There are no lesions of the lips, palate, buccal mucosa, floor of mouth or tongue. There is good tongue mobility. Pharynx: Tonsils unremarkable. Pharynx is not injected. Larynx: He speaks with a clear voice. Neck: Neck exam does not show cervical lymphadenopathy or other masses. No masses are noted in palpating the thyroid area. No skin lesions are noted in the neck area. Neurologic: He is fully oriented and alert. ASSESSMENT: ICD-9-CM ICD-10-CM 1. Collapse of nasal valve 478.19 J34.89 2. Obstruction of nose 478.19 J34.89 3. Snoring 786.09 R06.83 PLANS AND RECOMMENDATIONS: Requested Prescriptions No prescriptions requested or ordered in this encounter Patient Instructions NASAL OBSTRUCTION It appears you have some collapse of your nasal valves/side cordero on your nose, mostly on the right side which surgical intervention could improve. Follow up with Dr. Hdz to have your nose reexamined and to discuss specific surgical recommendations for your nasal obstruction. LARYNGOPHARYNGEAL REFLUX ( LPR ) = Stomach acid can cause irritation of the tissues in the back of the nose and throat which can contribute to the symptoms you are having. Start a liquid antacid at bedtime every night with nothing to eat or drink after. Liquid antacids can be found over the counter such as Gavascon, Pepcid or Mylanta. Do this every night for 6 weeks. This will help to heal some of the irritation in the back of the throat. Lifestyle modifications are necessary to help prevent this type of irritation from occurring again. Avoid reflux triggers: coffee, tea, soda, chocolate, mints, nuts, dairy/cheese, spicy/high acid foods, alcohol, tobacco, eating within 3 hours of bedtime. Stress is also a trigger for acid reflux. Raise the head of the bed 4 to 6 inches. Review laryngeal pharyngeal reflux education sheets. Symptoms of LPR may take minimally 6-8 weeks to start improving once these recommendations are started. If no improvement in symptoms, please return in 6 weeks so we can take a look at your vocal cords. Call the office with any new or worsening symptoms, questions or concerns. PAtient verbalized understanding of the information discussed during the visit and agreed to the outlined treatment plan. He denied further questions/concerns. Adri Peck PA-C [facility] Otolaryngology Attending Physician: Dr. Hdz documented in this encounter Plan of Treatment Date Type Specialty Care Team Description 04/18/2019 Office Visit Otorhinolaryngology Augusto Hdz Jr., MD [address] [place] [phone] 03/24/2020 Office Visit Internal Medicine Nely Treadwell MD [address] [place] [address] [phone] Health Maintenance Due Date Last Done Comments [...] filedocumented in this encounter Visit Diagnoses Diagnosis Collapse of nasal valve - Primary Other diseases of nasal cavity and sinuses Obstruction of nose Other diseases of nasal cavity and sinuses Snoring Other dyspnea and respiratory abnormality Laryngopharyngeal reflux (LPR) Esophageal reflux documented in this encounter Insurance Payer Benefit Plan / Subscriber ID Effective Dates Phone Address Type Group [employer] A[employer] xxxxxxxxxx 2018-Present [employer] Guarantor Name Account Type Relation to Date of Phone Billing Address Patient AndristPepito Personal/Famil [address] [place] (Home) [place] [phone] [place], [place] (Work) [id number] documented as of this encounter
--- OUTSIDE RECORDS SUMMARY | 2019-05-19 09:08 | XMS REPORT | Summary of Care ---
:1970 Author Organization [facility] Address [address] [facility] [place] [address] Care Team Providers Name Role Phone Nely Treadwell Primary Care Provider Reason for Referral Refer to Department Only (Routine) Status Reason Specialty Diagnoses / Referred By Referred To Procedures Contact Contact Authorized OTORHINOLARYNGOLOGY / Diagnoses Nose septum deviation Nasal congestion Cisco Treadwell, Otorhinolaryngology MD Adri Mckay PA-C [address] [facility] [place] [id number] Phone: Fax: Scheduling Instructions Please indicate side affected in the diagnosis. Sleep Study (Routine) Status Reason Specialty Diagnoses / Referred By Referred To Procedures Contact Contact Pending Review Sleep Disorder Diagnoses Snoring Non-restorative sleep KALYAN (obstructive sleep apnea) Nely Treadwell [facility] Sleep [facility] [address] [facility] [place] [place] [phone] Phone: Scheduling Instructions This order is to be used to begin the process for the patient to have a Sleep Study performed. If you wish to have the patient evaluated by a Sleep Specialist, please place a "Refer Sleep Medicine Specialist" order. If you have questions, please contact our Patient Coordinators: Maged: Solis: Brian: ([phone] or Reason for Visit Reason Comments Annual Follow Up 03/22/2019 Internal Medicine consultation and management multiple medical issues for annual Physical with concerns for snoring, anxiety review on duloxetine medications refills since last visit seen 04/20/2018 in 12/2018 but patient has stopped taking since then; with acute complaints of Non-restorative sleep, Hyperglycemia, Hyperlipidemia with target LDL less than 100, Depression screen, KALYAN (obstructive sleep apnea), Nocturia, Nose septum deviation, Nasal congestion, Vitamin D deficiency, Rubina Snoring Patient also presents to discuss acute problem visit "I'm snoring heavily and frequently wake up not feeling rested. Would you mind giving me a referral for a sleep study? [facility] in [place] would be convenient for me." Sleep Apnea KALYAN questionnnaire completed at office visit Form Completion KALYAN questionnnaire completed at office visit 1,2,3,4,7,8,9,11,13,19,23,26,27,28 14/30 EPWORTH 2,3,2,3,3,0,2,1=16 Mallampati class 4 Referral to sleep lab - patient conmmunicating with referral staff on this visit Abnormal Lab review of annual labs prior Vit D/B12 deficiency Nutrition Counseling lengthy discussion - see AVS for foods rich in Vit D/B12 Lab Work Only advise recheck labs as prior were over 12 months ago CBC CMP TSH Lipids A1c Nocturia Patient actively requests PSA labs with nocturia - advised referral and follow up with his urologist if any onging symptoms of prostatism reviewed Recheck advise review office visit to discuss sleep study if any abnormaities Stress at work with patient stopping duloxetine since 12/2018 last requests for refills for this Nasal Congestion recurrent reported by patient Deviated Nasal Septum lifeling as per patient Referral Paitent requests referral to ENT forevaluation for nasal congestion , snoring ,and deptal deviation without known prior nasal trauma Encounter Details Date Type Department Care Team Description 03/22/2019 Office Visit [facility] Internal Nely Treadwell, Physical exam, annual (Primary Dx); Medicine Snoring; [address] Non-restorative sleep; [place] [address] [address] Hyperglycemia; [phone] [place], [place] Hyperlipidemia with target LDL less than 100; [id number] Depression screen; [phone] KALYAN (obstructive sleep apnea); [phone] Nocturia; (Fax) Nose septum deviation; Nasal congestion; Vitamin D deficiency; Vitamin B12 deficiency; Ex-moderate cigarette smoker (10-19 per day); History of vitamin B deficiency Allergies No Known Allergiesdocumented as of this encounter (statuses as of 03/23/2019) Medications Medication Sig Dispensed Refills Start Date End Date Status Multiple Take 1 Tab 30 Tab 0 03/09/2018 Active Vitamins-Minerals by mouth (MENS 50+ MULTI WITH LUNCH VITAMIN/MIN) Oral DAILY. TabIndications: Vitamin D deficiency, Vitamin B 12 deficiency Cholecalciferol Take 1 Tab 30 Cap 0 08/25/2016 03/22/2019 Discontinued (VITAMIN D) 2000 by mouth UNITS Oral DAILY CapIndications: NEEDED (to Vitamin D deficiency keep Vit D levels > 40). duloxetine (CYMBALTA) Take 1 Cap 30 Cap 6 01/22/2019 03/22/2019 Discontinued 30 MG Oral CAPSULE by mouth ENTERIC COATED DAILY. PARTICLESIndications: Stress at work, Anxiety and depression documented as of this encounter (statuses as of 03/23/2019) Active Problems Problem Noted Date Nasal congestion [...] as of this encounter (statuses as of 03/23/2019) Resolved Problems Problem Noted Date Resolved Date History of vitamin B deficiency 04/20/2018 03/23/2019 Hypovitaminosis D 09/20/2012 02/20/2015 Tobacco use disorder 11/25/2010 12/06/2011 Nicotine dependence 11/25/2010 09/20/2012 BMI 27.0-27.9,adult 09/20/2012 Overview: BMI 27.04 Vertigo 03/23/2019 documented as of this encounter (statuses as of 03/23/2019) Immunizations Name Administration Dates Next Due Influenza [...] Sign Reading Time Taken Comments Blood Pressure 118/62 03/22/2019 8:26 AM EDT Pulse 63 03/22/2019 8:26 AM EDT Temperature 36.7 03/22/2019 8:26 AM EDT C (98 F) Respiratory Rate - - Oxygen Saturation 98% 03/22/2019 8:26 AM EDT Inhaled Oxygen Concentration - - Weight 89.8 kg (198 lb) 03/22/2019 8:26 AM EDT Height 175.3 cm (5' 9") 03/22/2019 8:26 AM EDT Body Mass Index 29.24 03/22/2019 8:26 AM EDT documented in this encounter Patient Instructions Patient InstructionsNely Treadwell MD - 03/22/2019 8:20 AM EDT www.nutritionfacts.org www.whfoods.org [email or web address] SIMA "Dr Harrison's Daily Dozen" 'Eat to Beat Disease' Dr Jerad Carpenter Vitamin D Deficiency WHAT YOU NEED TO KNOW: Vitamin D deficiency is a low level of vitamin D in your body. Vitamin D helps your body absorb calcium from foods. Your body makes vitamin D when your skin is exposed to sunlight. You can also get vitamin D from certain foods such as fish, eggs, and meat. Most of the vitamin D in your body comes fromsunlight exposure. DISCHARGE INSTRUCTIONS: Medicines: Vitamin D supplements will be needed to increase your levels back to normal. Take your medicine as directed. Call your healthcare provider if you think your medicine is not helping or if you have side effects. Tell him if you are allergic to any medicine. Keep a list of the medicines, vitamins, and herbs you take. Include the amounts, and when and why you take them. Bring the list or the pill bottles to follow-up visits. Carry your medicine list with you in case of an emergency. Follow up with your healthcare provider as directed: Write down your questions so you remember to ask them during your visits. Amount of vitamin D do you need each day: The amount of vitamin D you need depends on your age. Youmay need more than the recommended amounts below if you take certain medicines or you are obese. Askyour healthcare provider how much vitamin D you need. Infants up to 1 year of age: 400 international units (IU) Children 1 year and older: 600 IU Adults aged 19 to 70 years old: 600 IU Adults older than 70 years: 800 IU Prevent vitamin D deficiency: Eat foods that are high in vitamin D. Fatty fish such as mackerel, canned tuna and sardines, and salmon are good sources of vitamin D. Certain foods such as milk, juice, and cereal are fortified with vitamin D. Give your breastfed infant a vitamin D supplement of 400 IU each day. Take vitamin D supplements as directed. High doses of vitamin D can be toxic. Your healthcare provider will tell you how much vitamin D you should take each day. Vitamin D is best absorbed when taken with food. Expose your skin to sunlight as directed. Ask your healthcare provider how you can safely expose your skin to sunlight and for how long. Too much exposure to sunlight can cause skin cancer. Contact your healthcare provider if: You or your child still have symptoms, or your symptoms get worse. You think you took too much of a vitamin D supplement, and you have nausea , vomiting, or a headache. You have questions or concerns about your condition or care. 2016 [employer]. Information is for End User's use only and may not be sold, redistributed or otherwise used for commercial purposes. All illustrations and images included in CareNotes are the copyrighted property of [employer] or [employer]. The above information is an environmental engineering aide only. It is not intended as medical advice for individual conditions or treatments. Talk to your doctor, nurse or pharmacist before following any medical regimen to see if it is safe and effective for you. Vitamin B12 Deficiency WHAT YOU NEED TO KNOW: Vitamin B12 deficiency is a low level of vitamin B12 in your body. Vitamin B12 is only found in foods that come from animal sources such as fish, beef, dairy products, and eggs. Vitamin B12 deficiency should be treated as early as possible. Without treatment, it can cause permanent nerve damage over time. DISCHARGE INSTRUCTIONS: Medicines: Vitamin B12 supplements may be needed to increase your levels back to normal. Take your medicine as directed. Call your healthcare provider if you think your medicine is not helping or if you have side effects. Tell him if you are allergic to any medicine. Keep a list of the medicines, vitamins, and herbs you take. Include the amounts, and when and why you take them. Bring the list or the pill bottles to follow-up visits. Carry your medicine list with you in case of an emergency. Follow up with your healthcare provider as directed: Write down your questions so you remember to ask them during your visits. Good sources of vitamin B12: 3 ounces of cooked clams, 84.1 mcg 3 ounces of cooked beef liver, 70.7 mcg Fortified breakfast cereals, 1.5 to 6 mcg per serving 3 ounces of salmon, rainbow trout, or canned tuna fish, 2.5 to 4.8 mcg 3 ounces of top sirloin beef, 1.4 mcg 1 cup of milk or yogurt, 1.1 to 1.2 mcg 1 cup of a soy milk product, 0.9 to 3.3 mcg 1 ounce of a meat substitute, 0.5 to 1.2 mcg 1 ounce Rwandan cheese, 0.9 mcg 1 large egg, 0.6 mcg Amount of vitamin B12 you need each day: Infants 0 to 12 months: 0.4 micrograms (mcg) to 0.5 mcg Children 1 to 3 years: 0.9 mcg Children 4 to 8 years: 1.2 mcg Children 9 to 13 years: 1.8 mcg Children over 14 years and adults: 1.8 mcg women and adolescents (over 14 years): 2.6 mcg women and adolescents (over 14 years): 2.8 mcg Contact your healthcare provider if: You or your child continues to have symptoms, or your symptoms get worse. You have questions or concerns about your condition or care. 2016 [employer]. Information is for End User's use only and may not be sold, redistributed or otherwise used for commercial purposes. All illustrations and images included in CareNotes are the copyrighted property of [employer]. or [employer]. The above information is an environmental engineering aide only. It is not intended as medical advice for individual conditions or treatments. Talk to your doctor, nurse or pharmacist before following any medical regimen to see if it is safe and effective for you. Sleep Apnea AOC AIRSPACE CONTROL OFFICER: Sleep apnea is also called obstructive sleep apnea. It is a condition that causes you to stop breathing for 10 seconds or more while you are sleeping. During normal sleep, your throat is kept open by muscles that let air pass through easily. Sleep apnea causes the muscles and tissues around your throat to relax and block air from passing through. Sleep apnea may happen many times while you are asleep. Common symptoms include the following: No signs of breathing for 10 seconds or more while you sleep Snoring loudly, snorting, gasping or choking while you sleep, and waking up suddenly because ofthese A hard time thinking, remembering things, or focusing on your tasks the following day Headache or nausea Bedwetting or waking up often during the night to urinate Feeling sleepy, slow, and tired during the day Seek care immediately if: You have chest pain or trouble breathing. Contact your healthcare provider if: You feel tired or depressed. You have trouble staying awake during the day. You have trouble thinking clearly. You have questions or concerns about your condition or care. Treatment for sleep apnea includes using a continuous positive airway pressure (CPAP) machine to keep your airway open during sleep. A mask is placed over your nose and mouth, or just your nose. The mask is hooked to the CPAP machine that blows a gentle stream of air into the mask when you breathe. This helps keep your airway open so you can breathe more regularly. Extra oxygen may be given to you through the machine. You may be given a mouth device. It looks like a mouth guard or dental retainer and stops your tongue and mouth tissues from blocking your throat while you sleep. Surgery may be needed to remove extra tissues that block your mouth, throat, or nose. Manage sleep apnea: Do not smoke. Nicotine and other chemicals in cigarettes and cigars can cause lung damage. Askyour healthcare provider for information if you currently smoke and need help to quit. E-cigarettes or smokeless tobacco still contain nicotine. Talk to your healthcare provider before you use these products. Do not drink alcohol or take sedative medicine before you go to sleep. Alcohol and sedatives can relax the muscles and tissues around your throat. This can block the airflow to your lungs. Maintain a healthy weight. Excess tissue around your throat may restrict your breathing. Ask your healthcare provider for information if you need to lose weight. Sleep on your side or use pillows designed to prevent sleep apnea. This prevents your tongue or other tissues from blocking your throat. You can also raise the head of your bed. Follow up with your healthcare provider as directed: Write down your questions so you remember to ask them during your visits. 2016 [employer]. Information is for End User's use only and may not be sold, redistributed or otherwise used for commercial purposes. All illustrations and images included in CareNotes are the copyrighted property of [employer], [employer]. or [employer]. The above information is an environmental engineering aide only. It is not intended as medical advice for individual conditions or treatments. Talk to your doctor, nurse or pharmacist before following any medical regimen to see if it is safe and effective for you. documented in this encounter Plan of Treatment Date Type Specialty Care Team Description 04/03/2019 Office Visit Otorhinolaryngology Adri Peck PA-C [address] [place] [address] 03/24/2020 Office Visit Internal Medicine Nely Treadwell MD [address] [place] [phone] Name Type Priority Associated Diagnoses Order Schedule CBC WITH DIFFERENTIAL Lab Routine Hyperglycemia Expected: 03/22/2019 (Approximate), Expires: 03/21/2020 COMPREHENSIVE METABOLIC Lab Routine Hyperglycemia Expected: PANEL 03/22/2019 (Approximate), Expires: 03/21/2020 LIPID PROFILE Lab Routine Hyperlipidemia with Expected: target LDL less than 100 03/22/2019 (Approximate), Expires: 03/21/2020 THYROID STIMULATING HORMONE Lab Routine Snoring Expected: Non-restorative sleep 03/22/2019 (Approximate), Expires: 03/21/2020 GLYCOHEMOGLOBIN A1C Lab Routine Hyperglycemia Expected: 03/22/2019 (Approximate), Expires: 03/21/2020 PSA, TOTAL (FOLLOW-UP Lab Routine Nocturia Expected: DIAGNOSTIC) 03/22/2019 (Approximate), Expires: 03/22/2020 VITAMIN B12 LEVEL Lab Routine Vitamin B12 deficiency Expected: 03/22/2019 (Approximate), Expires: 03/22/2020 VITAMIN D 25 HYDROXY Lab Routine Vitamin D deficiency Expected: (REN) 03/22/2019 (Approximate), Expires: 03/22/2020 Name Type Priority Associated Diagnoses Order Schedule REFER TO SLEEP STUDY LAB Referral Routine Snoring Ordered: 03/22/2019 Non-restorative sleep KALYAN (obstructive sleep apnea) REFER TO OTOLARYNGOLOGY Referral Routine Nose septum deviation Expected: (ENT) Nasal congestion 03/22/2019, Expires: 03/22/2020 Health Maintenance Due Date Last Done Comments INFLUENZA VACCINE (#1) 2019 06/20/2015 DIABETES SCREENING 04/20/2019 04/20/2018, 03/09/2018, 08/25/2016, Additional history exists DEPRESSION SCREENING 03/22/2020 03/22/2019, 04/20/2018 LIPID DISORDER SCREENING 03/09/2023 03/09/2018, 08/25/2016, 02/25/2015, Additional history exists HPV IMMUNIZATION SERIES Aged [...] Problems Progress Depression Depression 4 (04/20/2018 No Eben screen (PHQ-9) 2:58 PM EDT) Nely, total [...] filedocumented in this encounter Visit Diagnoses Diagnosis Physical exam, annual - Primary Routine general medical examination at a health care facility Snoring Other dyspnea and respiratory abnormality Non-restorative sleep Other sleep disturbances Hyperglycemia Other abnormal glucose Hyperlipidemia with target LDL less than 100 Other and unspecified hyperlipidemia Depression screen Screening for depression KALYAN (obstructive sleep apnea) Obstructive sleep apnea (adult) (pediatric) Nocturia Nose septum deviation Deviated nasal septum Nasal congestion Other diseases of nasal cavity and sinuses Vitamin D deficiency Unspecified vitamin D deficiency Vitamin B12 deficiency Other B-complex deficiencies Ex-moderate cigarette smoker (10-19 per day) Personal history of tobacco use, presenting hazards to health History of vitamin B deficiency Personal history of nutritional deficiency documented in this encounter Insurance Payer Benefit Plan / Subscriber ID Effective Dates Phone Address Type Group [employer] COMMERCIAL AETNA xxxxxxxxxx 2018-Present [employer] (Home) [place] [phone] [place], [place] (Work) [id number] documented as of this encounter
[2019-05-19 09:57] VITALS: BP 124/74
--- NOTE | 2019-05-19 12:59 | ED ---
Abdominal Pain/Male - HPI Summary HPI Summary: This patient is a 48-year-old male who presents to the ED with left-sided upper quadrant pain radiating into the left upper shoulder. He states symptoms are worse with movement and better with rest. Denies any nausea, vomiting, diarrhea , constipation, melena, hematochezia, decreased by mouth intake, dysphagia, odynophagia. He denies any fevers, sweats, chills. He continues to eat and drink okay. Last bowel movement was yesterday and was normal. He states he had similar symptoms in July of this year, and full workup was obtained and they "found nothing." He states a few days later, the pain dissipated on its own. He states 2 days ago, the pain returned into the same location radiating up into the left shoulder. In July when he was seen in the ED, an ultrasound and chest xray obtained both of which were negative. - History of Current Complaint Chief Complaint: EDAbdPain Stated Complaint: ABD PAIN PER PT Time Seen by Provider: 05/19/19 07:52 Hx Obtained From: Patient Onset/Duration: Sudden Onset Timing: Constant Severity Initially: Mild Severity Currently: Mild Pain Intensity: 6 Pain Scale Used: 0-10 Numeric Location: Other - luq Radiates: Yes Radiates to: Other - l shoulder Character: Cramping Aggravating Factor(s): Movement Alleviating Factor(s): Nothing Associated Signs And Symptoms: Positive: Negative - Risk Factors Testicular Torsion: Negative Cardiac Risk Factors: Negative - Allergies/Home Medications Allergies/Adverse Reactions: Allergies Allergy/AdvReac Type Severity Reaction Status Date / Time No Known Allergies Allergy Verified 05/19/19 07:51 Home Medications: Home Medications Multivit-Min/Folic/Vit K/Lycop [Men's Multivitamin Tablet] 1 each PO DAILY 05/19 [History Confirmed 05/19/19] PMH/Surg Hx/FS Hx/Imm Hx Previously Healthy: Yes Psychiatric History: Reports: Hx Depression - Surgical History Surgery Procedure, Year, and Place: Ankle surgery 20 years ago Hx Anesthesia Reactions: No - Immunization History Hx Pertussis Vaccination: No Immunizations Up to Date: Yes Infectious Disease History: No Infectious Disease History: Reports: Traveled Outside the in Last 30 Days - [facility] [place] 05/12 - Family History Known Family History: Positive: Non-Contributory - Social History Occupation: Employed Full-time Lives: With Family Alcohol Use: None Hx Substance Use: No Substance Use Type: Reports: None Hx Tobacco Use: Yes Smoking Status (MU): Former Smoker Review of Systems Negative: Fever, Chills, Fatigue, Skin Diaphoresis Negative: Palpitations, Chest Pain Negative: Shortness Of Breath, Cough Genitourinary: Negative Positive: no symptoms reported, see HPI Negative: Arthralgia, Myalgia Negative: Rash, Bruising Neurological: Negative All Other Systems Reviewed And Are Negative: Yes Physical Exam Triage Information Reviewed: Yes Vital Signs On Initial Exam: Initial Vitals Temp Pulse Resp BP Pulse Ox 98.7 F 69 16 128/88 99 05/19/19 07:47 05/19/19 07:47 05/19/19 07:47 05/19/19 07:47 05/19/19 07:47 Vital Signs Reviewed: Yes Appearance: Positive: Well-Appearing, Well-Nourished Skin: Positive: Warm, Skin Color Reflects Adequate Perfusion Head/Face: Positive: Normal Head/Face Inspection Eyes: Positive: EOMI, Conjunctiva Clear Neck: Positive: Supple, No Lymphadenopathy Respiratory/Lung Sounds: Positive: Clear to Auscultation, Breath Sounds Present Cardiovascular: Positive: RRR, Pulses are Symmetrical in both Upper and Lower Extremities Abdomen Description: Positive: Nontender, No Organomegaly, Soft. Negative: CVA Tenderness (R), CVA Tenderness (L) Musculoskeletal: Positive: Normal, Strength/ROM Intact Neurological: Positive: Speech Normal Psychiatric: Positive: Normal, Affect/Mood Appropriate AVPU Assessment: Alert Procedures - Sedation Patient Received Moderate/Deep Sedation with Procedure: No Diagnostics - Vital Signs Vital Signs Temp Pulse Resp BP Pulse Ox 05/19/19 09:56 98.6 F 55 16 124/74 96 05/19/19 07:47 98.7 F 69 16 128/88 99 - Laboratory Lab Results: Lab Results 05/19/19 05/19/19 05/19/19 Range/Units 08:08 08:08 08:50 WBC 6.0 (3.5-10.8) 10^3/uL RBC 4.99 (4.18-5.48) 10^6 /uL Hgb 15.0 (14.0-18.0) g/dL Hct 43 (42-52) % MCV 86 (80-94) fL MCH 30 (27-31) pg MCHC 35 (31-36) g/dL RDW 13 (10-15) % Plt Count 214 (150-450) 10^3/uL MPV 7.6 (7.4-10.4) fL Neut % (Auto) 68.2 % Lymph % (Auto) 21.4 % [place] % (Auto) 7.7 % Eos % (Auto) 2.1 % Baso % (Auto) 0.6 % Absolute Neuts (auto) 4.1 (1.5-7.7) 10^3/ul Absolute Lymphs (auto) 1.3 (1.0-4.8) 10^3/ul Absolute Monos (auto) 0.5 (0-0.8) 10^3/ul Absolute Eos (auto) 0.1 (0-0.6) 10^3/ul Absolute Basos (auto) 0.0 (0-0.2) 10^3/ul Absolute Nucleated RBC 0.0 10^3/ul Nucleated RBC % 0.1 Sodium 137 (135-145) mmol/L Potassium 3.7 (3.5-5.0) mmol/L Chloride 107 (101-111) mmol/L Carbon Dioxide 25 (22-32) mmol/L Anion Gap 5 (2-11) mmol/L BUN 14 (6-24) mg/dL Creatinine 0.77 (0.67-1.17) mg/dL Est GFR ( Amer) 131.6 (>60) Est GFR (Non-Af Amer) 108.8 (>60) BUN/Creatinine Ratio 18.2 (8-20) Glucose 98 (70-100) mg/dL Calcium 8.6 (8.6-10.3) mg/dL Total Bilirubin 0.50 (0.2-1.0) mg/dL AST 15 (13-39) U/L ALT 16 (7-52) U/L Alkaline Phosphatase 59 (34-104) U/L Total Protein 6.6 (6.4-8.9) g/dL Albumin 4.0 (3.2-5.2) g/dL Globulin 2.6 (2-4) g/dL Albumin/Globulin Ratio 1.5 (1-3) Urine Color Straw Urine Appearance Clear Urine pH 7.0 (5-9) Ur Specific [place] 1.004 L (1.010-1.030) Urine Protein Negative (Negative) Urine Ketones Negative (Negative) Urine Blood Negative (Negative) Urine Nitrate Negative (Negative) Urine Bilirubin Negative (Negative) Urine Urobilinogen Negative (Negative) Ur Leukocyte Esterase Negative (Negative) Urine Glucose Negative (Negative) Result Diagrams: 05/19/19 08:08 05/19/19 08:08 Lab Statement: Any lab studies that have been ordered have been reviewed, and results considered in the medical decision making process. Abdominal Pain Male Course/Dx - Course Course Of Treatment: Pt is seen for LUQ pain radiating into the left upper shoulder. Patient states symptoms are worse with movement and better with rest. Worse with getting up from sitting to standing position, better with lying flat. He denies any cough or congestion. Denies any fevers, sweats, chills. Physical examination, patient does not have any pain on palpation to the abdomen or to the rib cage. Lungs CTA, RRR. X-ray of the abdomen and chest obtained, both of which are negative. Labs obtained which are all WNL. UA obtained and is negative. Discussed findings with the patient. This is likely a muscle strain and patient is encouraged ibuprofen and moist heat to the area. Patient will return to the ED if any worsening symptoms develop. - Diagnoses Differential Diagnosis/HQI/PQRI: Other - LUQ pain, muscle tightness, abd pain Provider Diagnoses: Muscle strain Discharge ED - Sign-Out/Discharge Documenting (check all that apply): Patient Departure - Discharge Plan Condition: Stable Disposition: HOME Patient Education Materials: Muscle Strain (ED) Referrals: Nely Treadwell MD [Primary Care Provider] - Additional Instructions: Ibuprofen 600mg three times daily Moist heat to the area as much as possible If symptoms worsen, you need to return to the ED - Billing Disposition and Condition Condition: STABLE Disposition: Home - Attestation Statements Provider Attestation: I was available for consult. This patient was seen by the SIM[facility]. The patient was not presented to, seen by, or examined by me. Jesse Manzano MD
== END 2019-05-19 09:50 | disposition home or self-care (01) ==
LOC: ED 07:38
DX: S46.912A Strain of unspecified muscle, fascia and tendon at shoulder and upper arm level, left arm, initial encounter (principal); R10.12 Left upper quadrant pain; F32.9 Major depressive disorder, single episode, unspecified; Z87.891 Personal history of nicotine dependence; Z79.899 Other long term (current) drug therapy; X58.XXXA Exposure to other specified factors, initial encounter; Y92.9 Unspecified place or not applicable
CPT/HCPCS: 36415; 71046; 74018; 80053; 81003; 85025; 99282